=== PATIENT | male | born 1995 | race Caucasian/White ===

== ENCOUNTER 2018-01-15 06:13 | Inpatient (IN) | payer BC ==
[~2018-01-15] VITALS: Ht 180.3 cm; Wt 100.8 kg
[2018-01-15] MEDS ORDERED: PROZAC 20MG20 MG PO (06:26)
[2018-01-15] MEDS ORDERED: XANAX .25M0.25 MG/TA PO (06:27)
[2018-01-15 07:00] LABS: HEMOGLOBIN 15.2 g/dl (13.5-18.0); MEAN CELL VOLUME 84 fl (80.0-100.0); MEAN CORPUSCULAR HEMOGLOBIN 27 pg (27.0-31.0); MEAN CORPUSCULAR HGB CONC 32 g/dl (33.0-37.0); MEAN PLATELET VOLUME 11.6 fl (7.4-10.4); PLATELET COUNT 144 K/mm3 (130-400); RED BLOOD COUNT 5.59 M/mm3 (4.20-5.60); REDCELL DISTRIBUTION WIDTH-CV 13.7 % (11.5-14.5)
[2018-01-15 07:11] LABS: ALBUMIN 4.1 gm/dL (3.5-5.0); BILIRUBIN,TOTAL 8.7 mg/dL (0.0-1.0); CALCIUM 8.8 mg/dL (8.4-10.2); CREATININE, serum 0.96 mg/dL (0.66-1.25); POTASSIUM 3.3 mmol/L (3.4-5.0); TOTAL PROTEIN 8.1 gm/dL (6.4-8.2)
[2018-01-15 07:23] LABS: BAND 13 % (0-10); EOSINOPHIL 1 % (0-4); LYMPHOCYTE 72 % (20.0-51.0); NEUTROPHILS 9 % (42.0-75.2)
[2018-01-15 07:24] LABS: HYPOCHROMIA 1+; PLATELET ESTIMATE NORMAL (NORMAL)
[2018-01-15 08:32] LABS: COLLECTION METHOD CLEAN CATCH
[2018-01-15 08:44] LABS: MUCOUS Present /lpf; PH 6 (5-8); SQUAMOUS EPITHELIAL 0-2 /hpf; URINE APPEARANCE Clear; URINE BACTERIA None Seen /hpf; URINE BILIRUBIN Positive (NEGATIVE); URINE BLOOD Negative (NEGATIVE); URINE COLOR Amber; URINE GLUCOSE Negative (NEGATIVE); URINE KETONE 2+ (NEGATIVE); URINE LEUKOCYTE ESTERASE Negative (NEGATIVE); URINE NITRATE Negative (NEGATIVE); URINE PROTEIN(semi-quant) 1+ (NEGATIVE); URINE UROBILINOGEN >=4.0 mg/dL (NEGATIVE)
[2018-01-15 10:11] VITALS: BP 127/60; PULSE 73; TEMP 99.4
[2018-01-15 11:40] VITALS: BP 132/53; PULSE 75; TEMP 98.7
[2018-01-15 12:24] LABS: HIV 1/2 Antibodies Non-Reactive; HIV-1p24 Antigen Non-Reactive
[2018-01-15 15:52] VITALS: BP 122/53; PULSE 64; TEMP 98.4
[2018-01-15 20:44] VITALS: BP 129/79; PULSE 84; TEMP 98.6
[2018-01-16 00:44] VITALS: BP 120/40; PULSE 75; TEMP 98.4
[2018-01-16 04:40] VITALS: BP 123/74; PULSE 80
[2018-01-16 06:27] LABS: HEMATOCRIT 41.1 % (42.0-52.0); MEAN CELL VOLUME 85 fl (80.0-100.0); MEAN CORPUSCULAR HEMOGLOBIN 27 pg (27.0-31.0); MEAN CORPUSCULAR HGB CONC 32 g/dl (33.0-37.0); MEAN PLATELET VOLUME 11.4 fl (7.4-10.4); PLATELET COUNT 135 K/mm3 (130-400); RED BLOOD COUNT 4.83 M/mm3 (4.20-5.60); REDCELL DISTRIBUTION WIDTH-CV 14.1 % (11.5-14.5)
[2018-01-16 06:29] LABS: HEMOGLOBIN 13.1 g/dl (13.5-18.0)
[2018-01-16 06:51] LABS: ALBUMIN 3.2 gm/dL (3.5-5.0); BILIRUBIN,TOTAL 5.7 mg/dL (0.0-1.0); CALCIUM 7.5 mg/dL (8.4-10.2); CREATININE, serum 0.8 mg/dL (0.66-1.25); POTASSIUM 3.5 mmol/L (3.4-5.0); TOTAL PROTEIN 6.6 gm/dL (6.4-8.2)
[2018-01-16 07:24] LABS: BAND 7 % (0-10); LYMPHOCYTE 76 % (20.0-51.0); NEUTROPHILS 13 % (42.0-75.2); PLATELET ESTIMATE DECREASED (NORMAL)
[2018-01-16 08:04] VITALS: BP 117/54; PULSE 81; TEMP 98.1
[2018-01-16 12:10] VITALS: BP 116/60; PULSE 82; TEMP 97.8
[2018-01-16 15:25] VITALS: BP 114/37; PULSE 68; TEMP 97.4
[2018-01-16 22:38] VITALS: BP 127/58; PULSE 70; TEMP 98.1
[2018-01-17 01:26] VITALS: BP 120/56; PULSE 66; TEMP 98.1
[2018-01-17 04:33] VITALS: BP 127/63; PULSE 79; TEMP 99.5
[2018-01-17 06:41] LABS: HEMATOCRIT 40.3 % (42.0-52.0); HEMOGLOBIN 12.8 g/dl (13.5-18.0); MEAN CELL VOLUME 85 fl (80.0-100.0); MEAN CORPUSCULAR HEMOGLOBIN 27 pg (27.0-31.0); MEAN CORPUSCULAR HGB CONC 32 g/dl (33.0-37.0); MEAN PLATELET VOLUME 11.3 fl (7.4-10.4); PLATELET COUNT 147 K/mm3 (130-400); RED BLOOD COUNT 4.77 M/mm3 (4.20-5.60); REDCELL DISTRIBUTION WIDTH-CV 14.2 % (11.5-14.5)
[2018-01-17 06:47] LABS: CALCIUM 7.7 mg/dL (8.4-10.2); CREATININE, serum 0.73 mg/dL (0.66-1.25); POTASSIUM 3.6 mmol/L (3.4-5.0)
[2018-01-17 07:39] LABS: ALBUMIN 3.1 gm/dL (3.5-5.0); BILIRUBIN,TOTAL 6.1 mg/dL (0.0-1.0); CALCIUM 7.8 mg/dL (8.4-10.2); CREATININE, serum 0.72 mg/dL (0.66-1.25); POTASSIUM 3.6 mmol/L (3.4-5.0); TOTAL PROTEIN 6.5 gm/dL (6.4-8.2)
[2018-01-17 07:55] VITALS: BP 131/53; PULSE 76; TEMP 99.2
[2018-01-17 08:30] LABS: BAND 17 % (0-10); NEUTROPHILS 19 % (42.0-75.2)
[2018-01-17 08:31] LABS: HYPOCHROMIA 2+; LYMPHOCYTE 62 % (20.0-51.0); PLATELET ESTIMATE NORMAL (NORMAL)
[2018-01-17] MEDS ORDERED: ZOFRAN 4MG T4 MG/TAB PO (09:45)
[2018-01-17] MEDS ORDERED: ULTRAM 50MG TAB50 MG PO (09:45)
== END 2018-01-17 11:59 | disposition home or self-care (01) | DRG 872 ==
LOC: COL.ER 06:13 → MEDICAL 08:47
PROVIDERS: Emergency Medicine; Internal Medicine; Physician Assistant
DX: A41.9 Sepsis, unspecified organism (principal); N39.0 Urinary tract infection, site not specified; B27.90 Infectious mononucleosis, unspecified without complication; E87.6 Hypokalemia; F41.9 Anxiety disorder, unspecified; F32.9 Major depressive disorder, single episode, unspecified; F17.210 Nicotine dependence, cigarettes, uncomplicated
CPT/HCPCS: 99222-AI; 99232-AI; 99239; J0696; J1650; J2270; J2405; J3010; J7030; Q9967

== ENCOUNTER → 2018-01-22 | Outpatient (CLI) | payer BC ==
[~2018-01-22] MED LIST: PROZAC 20MG20 MG PO; ULTRAM 50MG TAB50 MG PO; XANAX .25M0.25 MG/TA PO; ZOFRAN 4MG T4 MG/TAB PO
[2018-01-22 10:29] LABS: HEMATOCRIT 42.6 % (42.0-52.0); MEAN CELL VOLUME 82 fl (80.0-100.0); MEAN CORPUSCULAR HEMOGLOBIN 27 pg (27.0-31.0); MEAN CORPUSCULAR HGB CONC 33 g/dl (33.0-37.0); MEAN PLATELET VOLUME 10.2 fl (7.4-10.4); PLATELET COUNT 213 K/mm3 (130-400); RED BLOOD COUNT 5.19 M/mm3 (4.20-5.60)
[2018-01-22 10:45] LABS: ALBUMIN 3.8 gm/dL (3.5-5.0); BILIRUBIN,TOTAL 4.1 mg/dL (0.0-1.0); CALCIUM 8.3 mg/dL (8.4-10.2); CREATININE, serum 0.9 mg/dL (0.66-1.25); POTASSIUM 3.8 mmol/L (3.4-5.0); TOTAL PROTEIN 7.7 gm/dL (6.4-8.2)
[2018-01-22 10:49] LABS: BAND 11 % (0-10); NEUTROPHILS 12 % (42.0-75.2); PLATELET ESTIMATE NORMAL (NORMAL)
[2018-01-22 10:51] LABS: HYPOCHROMIA 1+; LYMPHOCYTE 76 % (20.0-51.0); STOMATOCYTE 1+
== END ==
LOC: COL.LAB 09:47
PROVIDERS: Family Medicine
DX: B27.90 Infectious mononucleosis, unspecified without complication (principal)

== ENCOUNTER → 2018-01-29 | Outpatient (CLI) | payer BC ==
[2018-01-29 11:52] LABS: ALBUMIN 3.9 gm/dL (3.5-5.0); BILIRUBIN,TOTAL 1.8 mg/dL (0.0-1.0); CALCIUM 9.1 mg/dL (8.4-10.2); CREATININE, serum 0.92 mg/dL (0.66-1.25); POTASSIUM 4.3 mmol/L (3.4-5.0); TOTAL PROTEIN 7.9 gm/dL (6.4-8.2)
[2018-01-29 12:09] LABS: HEMATOCRIT 45.1 % (42.0-52.0); HEMOGLOBIN 14.1 g/dl (13.5-18.0); MEAN CELL VOLUME 84 fl (80.0-100.0); MEAN CORPUSCULAR HEMOGLOBIN 26 pg (27.0-31.0); MEAN CORPUSCULAR HGB CONC 31 g/dl (33.0-37.0); MEAN PLATELET VOLUME 10.4 fl (7.4-10.4); PLATELET COUNT 248 K/mm3 (130-400); RED BLOOD COUNT 5.35 M/mm3 (4.20-5.60)
[2018-01-29 12:51] LABS: BAND 4 % (0-10); BASOPHIL 2 % (0-2); LYMPHOCYTE 71 % (20.0-51.0); NEUTROPHILS 22 % (42.0-75.2); PLATELET ESTIMATE NORMAL (NORMAL)
== END ==
LOC: COL.LAB 11:11
PROVIDERS: Family Medicine
DX: R74.0 Nonspecific elevation of levels of transaminase and lactic acid dehydrogenase [LDH] (principal); B27.90 Infectious mononucleosis, unspecified without complication

== ENCOUNTER → 2018-02-06 | Outpatient (CLI) | payer BC | LOC: COL.RAD 09:00 | DX: B27.90 Infectious mononucleosis, unspecified without complication (principal); R16.1 Splenomegaly, not elsewhere classified ==

== ENCOUNTER 2020-10-16 09:24 | Day surgery (SDC) | payer BC ==
[2020-10-16] VITALS (7 sets, daily range): BP systolic 118–126; BP diastolic 72–86; PULSE 50–72; TEMP 97.7–98.4
[~2020-10-16] VITALS: Ht 180.3 cm; Wt 111.4 kg
[2020-10-16] MEDS ORDERED: NORCO 325 MG-51 TAB PO (13:29)
--- NOTE | 2020-10-16 14:20 | NUR ---
Patient returns to room 5 per cart from PACU accompanied by Oly ATKINSON and is awake and alert. Temp 97.4 and room air sats 100%. Bandaids x4 on abdomen dry. Scrotal support in place. IV fluids infusing and site free of redness. Siderails up x2 and call light in reach. Allowed to rest.
--- NOTE | 2020-10-16 14:35 | NUR ---
Continues to rest and is sipping on warm tea.
--- NOTE | 2020-10-16 14:50 | NUR ---
Resting and offers no complaints.
--- NOTE | 2020-10-16 15:05 | NUR ---
Room air sats 98%. Eating applesauce.
--- NOTE | 2020-10-16 15:07 | NUR ---
[place] 5mg one tab given for pain rating at 4/10. IV fluids continue to infuse.
--- NOTE | 2020-10-16 15:20 | NUR ---
Resting and is having less discomfort. Bandaids remain dry on the abdomen.
--- NOTE | 2020-10-16 15:30 | NUR ---
Assisted up to the bathroom and voids. Returns to room. Tolerated activity well. Does state that it is sore with movement. IV discontinued and site free of redness. Patient dresses self with assist of getting shoes on. Scrotal support maintained.
--- NOTE | 2020-10-16 15:50 | NUR ---
Dismissal instructions signed. Provided script for [place]. Follow up appointment made and provided to patient.
--- NOTE | 2020-10-16 15:53 | NUR ---
Patient dismissed to home driven by father and taken to the front door per wheelchair. Assisted into vehicle with instructions in hand.
== END 2020-10-16 15:53 | disposition home or self-care (01) ==
LOC: SDCO 09:24
DX: K40.90 Unilateral inguinal hernia, without obstruction or gangrene, not specified as recurrent (principal); F17.220 Nicotine dependence, chewing tobacco, uncomplicated; Z20.828 Contact with and (suspected) exposure to other viral communicable diseases
CPT/HCPCS: C1781; J0690; J1100; J1170; J2250; J2405; J2704; J3010; J7120